=== PATIENT | female | born 1945 | race Caucasian/White ===

== ENCOUNTER 2017-12-21 19:35 | Emergency (ER) | payer SELFPAY ==
[2017-12-21] MEDS ORDERED: MECLIZINE HCL 25 MG TAB PO ONE (20:10)
--- NOTE | 2017-12-21 20:10 | EDPHY ---
H & P Stated Complaint: +dizziness and high BP. Arrived from 2 days ago. Time Seen by Provider: 12/21/17 19:57 HPI/ROS: CHIEF COMPLAINT: Dizziness, elevated blood pressure HISTORY OF PRESENT ILLNESS: 72-year-old female presents with dizziness and elevated blood pressure. [place] had sudden onset of a spinning sensation, associated with nausea. She traveled back to [place], but continued to have a spinning sensation and nausea. Difficulty ambulating because the floor appears to be moving. Feels better when she remains still. She went to urgent care just prior to arrival and blood pressure was elevated. History of white coat syndrome, but no history of hypertension. Possibility of hypertension has been evaluated by her primary care physician on multiple occasions, but elevated blood pressure has always been attributed to white coat syndrome. No chest pain or shortness of breath. REVIEW OF SYSTEMS: complete 10 point ROS reviewed and is negative except for the noted elements in the HPI - Personal History Current Tetanus/Diphtheria Vaccine: No Current Tetanus Diphtheria and Acellular Pertussis (TDAP): No - Medical/Surgical History Hx Asthma: Yes Hx Chronic Respiratory Disease: No Hx Diabetes: No Hx Cardiac Disease: No Hx Renal Disease: No Hx Cirrhosis: No Hx Alcoholism: No Hx HIV/AIDS: No Hx Splenectomy or Spleen Trauma: No Other PMH: asthma, PE - Social History Smoking Status: Former smoker Alcohol Use: Sober Drug Use: None Additional Social History: , [place] - Physical Exam Exam: General Appearance: Alert, pleasant Eyes: Pupils equal and round, no conjunctival pallor, horizontal nystagmus with rightward gaze ENT, Mouth: Mucous membranes moist Neck: Normal inspection Respiratory: Lungs are clear to auscultation Cardiovascular: Regular rate and rhythm Gastrointestinal: Abdomen is soft and nontender Neurological: Alert, oriented x3, cranial nerves II through XII intact, motor 5 /5, sensory intact to light touch Skin: Warm and dry Extremities: Normal inspection Psychiatric: Mood and affect normal Constitutional: Initial Vital Signs Temperature (C) 36.7 C 12/21/17 19:49 Heart Rate 63 12/21/17 19:49 Respiratory Rate 16 12/21/17 19:49 Blood Pressure 194/117 H 12/21/17 19:49 O2 Sat (%) 95 12/21/17 19:49 O2 Delivery Mode Room Air Allergies/Adverse Reactions: nitrile Allergy (Verified 12/21/17 19:47) Home Medications: Medication Instructions Recorded Inhaler, Assist Devices 12/21/17 Medical Decision Making - Diagnostics EKG Interpretation: EKG interpreted by me reveals sinus rhythm, rate 59, LVH, T-wave inversion in lead III. Interpretation: abnormal EKG ED Course/Re-evaluation: This pt presents with vertigo and elevated BP. I suspect that the vertigo is the primary problem today and that the blood pressure is elevated as a result of the vertigo and white coat syndrome. Neurologic exam is normal and there are no concerning signs or symptoms for central etiology of vertigo. I do not think that this is a hypertensive emergency, though I will obtain serial blood pressure measurements. Meclizine 25mg orally given. 9pm: feels better after meclizine. BP 179/90. Blood pressure is declining with vertigo treatment. 2129: vertigo has resolved. BP 168/92, BP continues to decline. Ambulates with a steady gait. I feel that she is safe and stable for discharge home. She will take an record her blood pressure twice daily using a home blood pressure cuff. If her blood pressure remains elevated, she will follow up with PCP or return to the emergency department. Vertigo precautions given. Differential Diagnosis: Differential diagnosis includes TIA, stroke, intracranial hemorrhage, tumor, electrolyte abnormality and acute labyrinthitis. - Data Points Laboratory Results: Laboratory Results 12/21/17 20:35 12/21/17 20:35 Medications Given: Discontinued Medications Meclizine HCl (Meclizine Hcl) 25 mg PO EDNOW ONE Stop: 12/21/17 20:11 Last Admin: 12/21/17 20:29 Dose: 25 mg Departure - Departure Disposition: Home, Routine, Self-Care Clinical Impression: Vertigo Condition: Good Instructions: Vertigo (ED) Additional Instructions: Take Meclizine 1 tablet every 6 hours as needed for vertigo. Take and record your blood pressure twice daily. Return for worsening symptoms or any concerns. Referrals: Marce Cueva MD [Medical Doctor] - As per Instructions
[2017-12-21 20:46] LABS: PLATELET COUNT 289 10^3/uL (150-400)
--- NOTE | 2017-12-21 21:02 | CPEKG ---
Test Reason : OPEN Blood Pressure : / mmHG Vent. Rate : 057 BPM Atrial Rate : 057 BPM P-R Int : 168 ms QRS Dur : 082 ms QT Int : 454 ms P-R-T Axes : 013 -08 -04 degrees QTc Int : 442 ms Sinus rhythm Low voltage, precordial leads Left ventricular hypertrophy Borderline T abnormalities, inferior leads Confirmed by Aspen Michaels ([id number]) on 12/21/2017 9:01:56 PM Referred By: Confirmed By:Aspen Michaels
[2017-12-21 21:26] VITALS: BP 168/92
== END 2017-12-21 21:38 | disposition home or self-care (01) ==
DX: R42 Dizziness and giddiness (principal); Z87.891 Personal history of nicotine dependence